=== PATIENT | female | born 1980 | race Caucasian/White ===

== ENCOUNTER 2018-11-17 13:32 | Outpatient (CLI) | payer OTHER ==
[~2018-11-17 13:32] MED LIST: PRILOSEC2.5 MG; SEROQUEL300 MG; WELLBUTRIN75 MG; ZANTAC300 MG
== END 2018-11-17 13:48 | disposition home or self-care (01) ==
LOC: SONOGRAMA 13:32
DX: R10.84 Generalized abdominal pain (principal)

== ENCOUNTER → 2018-12-22 | Outpatient (CLI) | payer OTHER | END | disposition home or self-care (01) | LOC: SONOGRAMA 08:22 | DX: E04.1 Nontoxic single thyroid nodule (principal) ==

== ENCOUNTER → 2019-02-27 | Outpatient (CLI) | payer OTHER | END | disposition home or self-care (01) | LOC: RAD 11:20 | DX: M25.561 Pain in right knee (principal); M25.562 Pain in left knee ==